=== PATIENT | female | born 1935 | race Caucasian/White ===

== ENCOUNTER → 2018-11-16 | Outpatient (CLI) | payer MEDICARE, OTHER ==
[~2018-11-16] MED LIST: ALPR.25 PO; AMOCLA500 PO; Aciphex20 MG PO; CALCIUM + D3 E1 EACH PO; CELE200 PO; Flonase 0.05% N16 GM IN; LEVSOD100 PO; Nitrofurantoin50 MG PO; OXYACE5T PO; Prinivil10 MG PO; RXONDA4ODT MM; SULTRIDS PO; TAMO10 PO; TEMA30 PO
== END | disposition home or self-care (01) ==
LOC: LAB EV 14:34 → LAB SHORT 14:34
DX: N39.0 Urinary tract infection, site not specified (principal)
CPT/HCPCS: 87077; 87086; 87186

== ENCOUNTER 2018-12-19 17:20 | Emergency (ER) | payer MEDICARE, OTHER ==
[~2018-12-19] VITALS: Ht 154.9 cm; Wt 70.8 kg
[2018-12-19] MEDS ORDERED: CEPH500 PO (18:30)
== END 2018-12-19 18:42 | disposition home or self-care (01) ==
LOC: ER 17:20
DX: L03.114 Cellulitis of left upper limb (principal); I10 Essential (primary) hypertension; Z85.3 Personal history of malignant neoplasm of breast; Z88.5 Allergy status to narcotic agent; Z79.899 Other long term (current) drug therapy
CPT/HCPCS: 99283

== ENCOUNTER → 2019-03-28 | Outpatient (CLI) | payer MEDICARE, OTHER ==
[~2019-03-28] MED LIST changes: +CEPH500 PO; +Metronidazole70 GM VAG; +Zithromax250 MG PO
[2019-04-01 15:08] LABS: HPV 16 Negative (Negative); HPV 18 Negative (Negative); HPV OTHER HR TYPES Negative (Negative)
== END | disposition home or self-care (01) ==
LOC: LAB 14:36 → LAB SHORT 14:36
PROVIDERS: Nurse Practitioner Women's Health
DX: Z12.72 Encounter for screening for malignant neoplasm of vagina (principal)
CPT/HCPCS: 87624; G0123

== ENCOUNTER 2019-05-06 23:09 | Emergency (ER) | payer MEDICARE, OTHER ==
[~2019-05-06] VITALS: Ht 167.6 cm; Wt 72.6 kg
[~2019-05-06 23:09] MED LIST changes: -Metronidazole70 GM VAG; -Zithromax250 MG PO
[2019-05-06 23:41] LABS: BASOPHILS ABSOLUTE AUTO 0.03 K/mm3 (0.00-0.23); BASOPHILS PERCENT AUTO 0 % (0-2); EOSINOPHILS ABSOLUTE AUTO 0.05 K/mm3 (0.00-0.68); EOSINOPHILS PERCENT AUTO 0 % (0-6); Hematocrit 37.4 % (33.0-51.0); Hemoglobin 12.6 g/dL (11.5-16.0); IMMATURE GRAN ABSOLUTE AUTO 0.04 K/mm3 (0.00-0.10); IMMATURE GRAN PERCENT AUTO 0 % (0-1); LYMPHOCYTES ABSOLUTE AUTO 0.96 K/mm3 (0.84-5.20); LYMPHOCYTES PERCENT AUTO 8 % (21-46); MONOCYTES ABSOLUTE AUTO 0.39 K/mm3 (0.16-1.47); MONOCYTES PERCENT AUTO 3 % (4-13); Mean Corpuscular HGB 30.8 pg (26.0-34.0); Mean Corpuscular HGB Conc 33.7 g/dL (31.5-36.5); Mean Corpuscular Volume 91 fL (80-100); Mean Platelet Volume 10.5 fL (9.1-12.4); NEUTROPHILS ABSOLUTE AUTO 10.36 K/mm3 (1.96-9.15); NEUTROPHILS PERCENT AUTO 88 % (41-73); Platelet Count 170 K/mm3 (150-400); RDW Coefficient Variation 13.2 % (11.7-14.2); RDW Standard Deviation 43.6 fL (35.1-46.3); Red Blood Cell Count 4.09 M/mm3 (3.80-5.20); White Blood Cell Count 11.83 K/mm3 (4.00-11.30)
[2019-05-07 00:48] LABS: Source, Urine Clean Catch
[2019-05-07 00:51] LABS: Bilirubin, Urine Neg (Neg); Blood, Urine 1+ (Neg); Glucose Qualitative, Urine Neg (Neg); Ketones, Urine Neg (Neg); Leukocyte Esterase, Urine 1+ (Neg); Nitrite, Urine Neg (Neg); Protein, Urine Neg (Neg); Urobilinogen, Urine NORM (Normal)
[2019-05-07 00:53] LABS: Appearance, Urine Clear (Clear); Color, Urine Yellow (P-Yellow)
[2019-05-07 00:59] LABS: Red Blood Cells, Urine 0-2 /hpf (0-2); Squamous Epithelial Cells Many /hpf (Few)
[2019-05-07 01:00] LABS: Bacteria Mod /hpf
[2019-05-07] MEDS ORDERED: Metronidazole70 GM VAG (01:34)
[2019-05-07] MEDS ORDERED: Zithromax250 MG PO (01:34)
[2019-05-07 01:40] LABS: Albumin, Blood 3.5 g/dL (3.4-5.0); Albumin/Globulin Ratio 1.1 (0.8-1.8); Bilirubin, Total 0.3 mg/dL (0.1-1.0); Bun/Creatinine Ratio 19.1 (12.0-20.0); Calcium, Blood 8.4 mg/dL (8.5-10.1); Creatinine, Blood 1.41 mg/dL (0.40-1.00); Globulin, Blood 3.2 g/dL (2.2-4.0); Potassium, Blood 3.4 mmol/L (3.5-5.5); Total Protein, Blood 6.7 g/dL (6.4-8.2)
== END 2019-05-07 02:13 | disposition home or self-care (01) ==
LOC: ER 23:09
PROVIDERS: Physician Assistant
DX: J18.1 Lobar pneumonia, unspecified organism (principal); N76.0 Acute vaginitis; I10 Essential (primary) hypertension; Z85.3 Personal history of malignant neoplasm of breast; Z88.5 Allergy status to narcotic agent; Z91.048 Other nonmedicinal substance allergy status; Z79.899 Other long term (current) drug therapy
CPT/HCPCS: 36415; 71046; 80053; 81001; 83690; 85025; 87086; 96361; 96365; 96375; 99284-25; A9270-GY; J0696; J2405; J7030

== ENCOUNTER 2019-10-21 00:14 | Day surgery (SDC) | payer MEDICARE, OTHER ==
[~2019-10-21 00:14] MED LIST changes: +Metronidazole70 GM VAG; +Zithromax250 MG PO
== END 2019-10-21 15:25 | disposition home or self-care (01) ==
LOC: ATC 00:14
DX: N30.00 Acute cystitis without hematuria (principal); B96.1 Klebsiella pneumoniae [K. pneumoniae] as the cause of diseases classified elsewhere
CPT/HCPCS: 96365; J1335

== ENCOUNTER 2019-10-22 00:12 | Day surgery (SDC) | payer MEDICARE, OTHER | END 2019-10-22 14:54 | disposition home or self-care (01) | LOC: ATC 00:12 | DX: N30.00 Acute cystitis without hematuria (principal); B96.1 Klebsiella pneumoniae [K. pneumoniae] as the cause of diseases classified elsewhere | CPT/HCPCS: 96365; J1335 ==

== ENCOUNTER 2019-10-24 14:57 | Day surgery (SDC) | payer MEDICARE, OTHER | END 2019-10-24 15:35 | disposition home or self-care (01) | LOC: ATC 14:57 | DX: N30.00 Acute cystitis without hematuria (principal); B96.1 Klebsiella pneumoniae [K. pneumoniae] as the cause of diseases classified elsewhere | CPT/HCPCS: 96365; J1335 ==

== ENCOUNTER → 2020-01-17 | Outpatient (CLI) | payer MEDICARE, OTHER | END | disposition home or self-care (01) | LOC: LAB EV 15:39 → LAB SHORT 15:39 | DX: N39.0 Urinary tract infection, site not specified (principal) | CPT/HCPCS: 87077; 87086; 87186 ==

== ENCOUNTER → 2020-01-28 | Outpatient (CLI) | payer MEDICARE, OTHER | END | disposition home or self-care (01) | LOC: LAB SHORT 09:41 → LAB 09:41 | DX: Z01.419 Encounter for gynecological examination (general) (routine) without abnormal findings (principal) | CPT/HCPCS: 87070; 87077; 87186; 87205 ==

== ENCOUNTER 2020-02-05 11:27 | Day surgery (SDC) | payer MEDICARE, OTHER | END 2020-02-05 16:15 | disposition home or self-care (01) | LOC: ATC 11:27 | DX: N30.00 Acute cystitis without hematuria (principal); B96.1 Klebsiella pneumoniae [K. pneumoniae] as the cause of diseases classified elsewhere | CPT/HCPCS: 96365; J1335 ==

== ENCOUNTER 2020-02-06 01:59 | Day surgery (SDC) | payer MEDICARE, OTHER | END 2020-02-06 15:30 | disposition home or self-care (01) | LOC: ATC 01:59 | DX: N30.00 Acute cystitis without hematuria (principal); B96.1 Klebsiella pneumoniae [K. pneumoniae] as the cause of diseases classified elsewhere | CPT/HCPCS: 96365; J1335 ==

== ENCOUNTER 2020-02-10 00:05 | Day surgery (SDC) | payer MEDICARE, OTHER | END 2020-02-10 15:35 | disposition home or self-care (01) | LOC: ATC 00:05 | DX: N30.00 Acute cystitis without hematuria (principal); B96.1 Klebsiella pneumoniae [K. pneumoniae] as the cause of diseases classified elsewhere | CPT/HCPCS: 96365; J1335 ==

== ENCOUNTER 2020-04-05 07:10 | Day surgery (SDC) | payer MEDICARE, OTHER | END 2020-04-05 10:44 | disposition home or self-care (01) | LOC: ATC 07:10 | DX: N39.0 Urinary tract infection, site not specified (principal); N81.6 Rectocele; R39.14 Feeling of incomplete bladder emptying; N95.2 Postmenopausal atrophic vaginitis; Z88.5 Allergy status to narcotic agent; Z88.2 Allergy status to sulfonamides; Z88.1 Allergy status to other antibiotic agents; Z88.8 Allergy status to other drugs, medicaments and biological substances; Z87.440 Personal history of urinary (tract) infections | CPT/HCPCS: J1335 ==

== ENCOUNTER 2020-04-07 00:35 | Day surgery (SDC) | payer MEDICARE, OTHER ==
[~2020-04-07 00:35] MED LIST changes: -CALCIUM + D3 E1 EACH PO; +CALCIUM 600 +1 EAC7 PO; +FLUT.05NI; -Flonase 0.05% N16 GM IN
[2020-04-08] MEDS ORDERED: Lisinopril-Hct1 EAC4 PO (09:40)
== END 2020-04-07 09:19 | disposition home or self-care (01) ==
LOC: ATC 00:35
DX: N39.0 Urinary tract infection, site not specified (principal); Z88.5 Allergy status to narcotic agent; Z88.2 Allergy status to sulfonamides; Z88.1 Allergy status to other antibiotic agents; Z88.8 Allergy status to other drugs, medicaments and biological substances; N81.6 Rectocele; N95.2 Postmenopausal atrophic vaginitis; Z87.440 Personal history of urinary (tract) infections
CPT/HCPCS: J1335

== ENCOUNTER 2020-04-08 00:07 | Day surgery (SDC) | payer MEDICARE, OTHER ==
[2020-04-08] MEDS ORDERED: Lisinopril-Hct1 EAC4 PO (09:40)
== END 2020-04-08 10:03 | disposition home or self-care (01) ==
LOC: ATC 00:07
DX: N39.0 Urinary tract infection, site not specified (principal); B96.1 Klebsiella pneumoniae [K. pneumoniae] as the cause of diseases classified elsewhere; N81.6 Rectocele; C50.911 Malignant neoplasm of unspecified site of right female breast; C50.912 Malignant neoplasm of unspecified site of left female breast; Z88.5 Allergy status to narcotic agent; Z88.2 Allergy status to sulfonamides; Z88.8 Allergy status to other drugs, medicaments and biological substances; Z79.899 Other long term (current) drug therapy; N95.2 Postmenopausal atrophic vaginitis; Z87.440 Personal history of urinary (tract) infections
CPT/HCPCS: 96365; J1335

== ENCOUNTER 2020-04-11 00:14 | Day surgery (SDC) | payer MEDICARE, OTHER ==
[~2020-04-11 00:14] MED LIST changes: +Lisinopril-Hct1 EAC4 PO
== END 2020-04-11 10:08 | disposition home or self-care (01) ==
LOC: ATC 00:14
DX: N39.0 Urinary tract infection, site not specified (principal); Z88.5 Allergy status to narcotic agent; Z88.1 Allergy status to other antibiotic agents; Z88.8 Allergy status to other drugs, medicaments and biological substances; Z79.82 Long term (current) use of aspirin; Z79.899 Other long term (current) drug therapy
CPT/HCPCS: 96365; J1335

== ENCOUNTER 2020-04-12 09:35 | Day surgery (SDC) | payer MEDICARE, OTHER | END 2020-04-12 10:08 | disposition home or self-care (01) | LOC: ATC 09:35 | DX: N39.0 Urinary tract infection, site not specified (principal); N81.6 Rectocele; N95.2 Postmenopausal atrophic vaginitis; Z87.440 Personal history of urinary (tract) infections; Z88.5 Allergy status to narcotic agent; Z88.2 Allergy status to sulfonamides; Z88.1 Allergy status to other antibiotic agents; Z88.8 Allergy status to other drugs, medicaments and biological substances | CPT/HCPCS: 96365; J1335 ==

== ENCOUNTER → 2021-02-12 | Outpatient (CLI) | payer MEDICARE, OTHER | END | disposition home or self-care (01) | LOC: LAB SHORT 13:41 → LAB 13:41 | DX: R82.79 Other abnormal findings on microbiological examination of urine (principal) | CPT/HCPCS: 87077; 87086; 87186 ==

== ENCOUNTER 2023-06-09 11:30 | Emergency (ER) | payer MEDICARE, OTHER ==
[~2023-06-09] VITALS: Ht 165.1 cm; Wt 77.1 kg
[2023-06-09] MEDS ORDERED: XARELTO15 M1 PO (11:54)
[2023-06-09] MEDS ORDERED: ESCI10 PO (11:54)
[2023-06-09 12:46] LABS: Source, Urine Suprapubic Cath
[2023-06-09 13:02] LABS: Bilirubin, Urine Neg (Neg); Blood, Urine 5+ (Neg); Color, Urine Yellow (P-Yellow); Glucose Qualitative, Urine Neg (Neg); Ketones, Urine Neg (Neg); Leukocyte Esterase, Urine 3+ (Neg); Nitrite, Urine Neg (Neg); Protein, Urine 2+ (Neg); Urobilinogen, Urine NORM (Normal); pH, Urine 6.5 (5.0-8.0)
[2023-06-09 13:37] LABS: Appearance, Urine Hazy (Clear); Bacteria Many /hpf; Mucus Light (0-Heavy); Squamous Epithelial Cells Rare /hpf (Few)
[2023-06-09 13:38] LABS: Transitional Epithelial Cells Rare /hpf (0-Rare)
[2023-06-09] MEDS ORDERED: LEVFLO500 PO (13:47)
[2023-06-09 14:07] VITALS: BP 154/76
== END 2023-06-09 14:07 | disposition home or self-care (01) ==
LOC: ER 11:30
PROVIDERS: Physician Assistant
DX: N39.0 Urinary tract infection, site not specified (principal); Z88.5 Allergy status to narcotic agent; Z88.1 Allergy status to other antibiotic agents; Z91.048 Other nonmedicinal substance allergy status; Z79.899 Other long term (current) drug therapy; Z85.3 Personal history of malignant neoplasm of breast; I10 Essential (primary) hypertension
CPT/HCPCS: 51102; 81001; 87077; 87086; 87186; 99283-25; A9270

== ENCOUNTER 2023-07-10 10:45 | Day surgery (SDC) | payer MEDICARE, OTHER ==
[~2023-07-10 10:45] MED LIST changes: +Cytomel5 MCG PO; +ESCI10 PO; +Estrace Vagin42.5 GM PV; +LEVFLO500 PO; +NEBI5 PO; +NITR100CA PO; +Ventolin5 MG/1 ML INH; +XARELTO15 M1 PO; +XARELTO20 MG PO
--- NOTE | 2023-07-10 11:52 | NUR ---
REBECA HANNAH AND CARMELITA SPOKE WITH PT AND HER REGARDING CANCELLING PACEMAKER IMPLANT RELATIVE TO URINE AND POSSIBLE BLOOD INFECTION. PT WILL PROVIDE URINE AND BLOOD FOR CULTURES AND OFFICE WILL CONTACT PT WITH RESULTS.
== END 2023-07-10 12:41 | disposition home or self-care (01) ==
LOC: MHTC 10:45
DX: I48.91 Unspecified atrial fibrillation (principal); R55 Syncope and collapse; I49.5 Sick sinus syndrome
CPT/HCPCS: 87040; J0690; J1644; J7040

== ENCOUNTER 2023-10-02 09:54 | Inpatient (IN) | payer MEDICARE, OTHER ==
[~2023-10-02] VITALS: Ht 167.6 cm; Wt 67.3 kg
[~2023-10-02 09:54] MED LIST changes: -LEVSOD100 PO; +LEVSOD75 PO
[2023-10-02] MEDS ORDERED: HYDR25SUP PR (10:24)
[2023-10-02] MEDS ORDERED: METPRE4DP PO (10:26)
[2023-10-02] MEDS ORDERED: TRIDERM28.4 GM TOP (10:26)
[2023-10-02] MEDS ORDERED: Acetaminophen 500 MG Tab PO ONE (10:30)
[2023-10-02 10:35] LABS: BASOPHILS ABSOLUTE AUTO 0.02 K/mm3 (0.00-0.23); BASOPHILS PERCENT AUTO 0 % (0-2); EOSINOPHILS ABSOLUTE AUTO 0.03 K/mm3 (0.00-0.68); EOSINOPHILS PERCENT AUTO 1 % (0-6); Hematocrit 20.8 % (33.0-51.0); Hemoglobin 6.9 g/dL (11.5-16.0); IMMATURE GRAN ABSOLUTE AUTO 0.01 K/mm3 (0.00-0.10); IMMATURE GRAN PERCENT AUTO 0 % (0-1); LYMPHOCYTES ABSOLUTE AUTO 1.31 K/mm3 (0.84-5.20); LYMPHOCYTES PERCENT AUTO 28 % (21-46); MONOCYTES PERCENT AUTO 9 % (4-13); Mean Corpuscular HGB 29.9 pg (26.0-34.0); Mean Corpuscular HGB Conc 33.2 g/dL (31.5-36.5); Mean Corpuscular Volume 90 fL (80-100); Mean Platelet Volume 10.1 fL (9.1-12.4); NEUTROPHILS ABSOLUTE AUTO 2.95 K/mm3 (1.96-9.15); NEUTROPHILS PERCENT AUTO 63 % (41-73); NRBC ABSOLUTE 0.02 K/mm3 (0.00-0.02); NRBC Auto 0.4 /100 WBC (0.0-0.2); Platelet Count 192 K/mm3 (150-400); RDW Coefficient Variation 14.2 % (11.7-14.2); RDW Standard Deviation 46.2 fL (35.1-46.3); Red Blood Cell Count 2.31 M/mm3 (3.80-5.20); White Blood Cell Count 4.72 K/mm3 (4.00-11.30)
[2023-10-02] MEDS ORDERED: KLOR-CON 1010 ME9 PO (10:59)
[2023-10-02] MEDS ORDERED: ALBU90OI INH (11:01)
[2023-10-02 11:07] LABS: Albumin, Blood 3.3 g/dL (3.4-5.0); Albumin/Globulin Ratio 1.2 (0.8-1.8); Bilirubin, Total 0.7 mg/dL (0.1-1.0); Calcium, Blood 8.5 mg/dL (8.5-10.1); Creatinine, Blood 1.22 mg/dL (0.40-1.00); Globulin, Blood 2.8 g/dL (2.2-4.0); Potassium, Blood 3.7 mmol/L (3.5-5.5); Thyroid Stimulating Hormone 0.268 uIU/mL (0.360-4.800); Total Protein, Blood 6.1 g/dL (6.4-8.2)
[2023-10-02 11:34] LABS: Base Excess Venous 2.2 mmol/L; Bicarbonate Venous 26.3 mmol/L (24.0-30.0); PCO2 Venous 31.3 mmHg (38-42); pH Blood Venous 7.51 (7.34-7.37)
[2023-10-02 11:46] LABS: Influenza A, PCR NEGATIVE (NEGATIVE); Influenza B, PCR NEGATIVE (NEGATIVE); Resp Syncytial Virus, PCR NEGATIVE (NEGATIVE); SARS-Cov-2 (COVID-19) PCR, MMC NEGATIVE (NEGATIVE)
[2023-10-02 12:00] LABS: Source, Urine Suprapubic Cath
[2023-10-02 12:06] LABS: Appearance, Urine Clear (Clear); Bilirubin, Urine Neg (Neg); Blood, Urine 4+ (Neg); Color, Urine Yellow (P-Yellow); Glucose Qualitative, Urine Neg (Neg); Ketones, Urine Neg (Neg); Leukocyte Esterase, Urine 2+ (Neg); Nitrite, Urine Neg (Neg); Protein, Urine 1+ (Neg); Urobilinogen, Urine NORM (Normal)
[2023-10-02 12:18] LABS: Bacteria Rare /hpf; Squamous Epithelial Cells Rare /hpf (Few)
[2023-10-02] MEDS ORDERED: Pantoprazole Sodium 40 MG Injection IV ONE (12:25)
[2023-10-02] MEDS ORDERED: FLU VACC QS2023-24(6MOS UP)/PF 60 MCG/0.5 ML SYRINGE IM ONE (13:25)
[2023-10-02] MEDS ORDERED: Peg/Electrolytes 4,000 ML BTL PO ONE ×2 (13:45→17:55)
[2023-10-02] MEDS ORDERED: NS 1,000 ML IV SCH ×3 (14:00→21:35)
[2023-10-02] MEDS ORDERED: FentaNYL Citrate 50 MCG/ML 2 ML Injection IV PRN (14:40)
[2023-10-02 17:43] VITALS: BP 168/48
[2023-10-02 18:06] LABS: Hematocrit 24.2 % (33.0-51.0); Hemoglobin 8.2 g/dL (11.5-16.0)
--- NOTE | 2023-10-02 18:11 | NUR ---
PT ARRIVED TO ROOM AOX4 AND COOPERATIVE OF CARE. PT IS A ONE PERSON ASSIST WITH WALKER. PT IS HAVING BLEEDING WITH HER STOOL WATER WAS PINK COLORED. BED ALARM IN PLACE AND CALL LIGHT WITHIN REACH WILL CONTINUE TO MONITOR.
[2023-10-02] MEDS ORDERED: Acetaminophen 500 MG Tab PO PRN (20:40)
[2023-10-02] MEDS ORDERED: Pantoprazole Sodium 40 MG Injection IV SCH (21:00)
[2023-10-03 02:52] VITALS: BP 139/58
--- NOTE | 2023-10-03 05:54 | NUR ---
END OF SHIFT SUMMARY PT A&O X 4, FORGETFUL. TOLERATING BOWEL PREP WELL, STOOL CURRENTLY STILL WATERY, LIGHT BROWN. PT ENCOURAGED TO FINISH PREP. UP TO BSC WITH CGA, PT STEADY BUT WEAK. TYLENOL GIVEN FOR HEADACHE. IVF INFUSING. RUE EDEMA IS CHRONIC PER PT.
[2023-10-03 06:12] LABS: BASOPHILS ABSOLUTE AUTO 0.03 K/mm3 (0.00-0.23); BASOPHILS PERCENT AUTO 1 % (0-2); EOSINOPHILS ABSOLUTE AUTO 0.06 K/mm3 (0.00-0.68); EOSINOPHILS PERCENT AUTO 2 % (0-6); Hemoglobin 7.5 g/dL (11.5-16.0); IMMATURE GRAN ABSOLUTE AUTO 0.01 K/mm3 (0.00-0.10); IMMATURE GRAN PERCENT AUTO 0 % (0-1); LYMPHOCYTES ABSOLUTE AUTO 1.16 K/mm3 (0.84-5.20); LYMPHOCYTES PERCENT AUTO 31 % (21-46); MONOCYTES ABSOLUTE AUTO 0.45 K/mm3 (0.16-1.47); MONOCYTES PERCENT AUTO 12 % (4-13); Mean Corpuscular HGB 30.4 pg (26.0-34.0); Mean Corpuscular HGB Conc 34.1 g/dL (31.5-36.5); Mean Corpuscular Volume 89 fL (80-100); Mean Platelet Volume 9.6 fL (9.1-12.4); NEUTROPHILS PERCENT AUTO 54 % (41-73); Platelet Count 142 K/mm3 (150-400); RDW Coefficient Variation 13.8 % (11.7-14.2); RDW Standard Deviation 44.4 fL (35.1-46.3); Red Blood Cell Count 2.47 M/mm3 (3.80-5.20); White Blood Cell Count 3.71 K/mm3 (4.00-11.30)
[2023-10-03 06:36] LABS: Albumin, Blood 2.9 g/dL (3.4-5.0); Albumin/Globulin Ratio 1.2 (0.8-1.8); Bun/Creatinine Ratio 15.2 (12.0-20.0); Calcium, Blood 8.1 mg/dL (8.5-10.1); Creatinine, Blood 1.32 mg/dL (0.40-1.00); Globulin, Blood 2.4 g/dL (2.2-4.0); Potassium, Blood 3.5 mmol/L (3.5-5.5); Total Protein, Blood 5.3 g/dL (6.4-8.2)
[2023-10-03 07:25] VITALS: BP 134/64
[2023-10-03] MEDS ORDERED: NS 1,000 ML IV SCH ×2 (07:50→08:00)
[2023-10-03] MEDS ORDERED: Lactated Ringer's 1,000 ML IV SCH (11:55)
[2023-10-03 12:07] VITALS: BP 175/65
[2023-10-03] MEDS ORDERED: Midazolam HCl 1MG / ML 2ML Vial ONE (12:34)
[2023-10-03] MEDS ORDERED: FentaNYL Citrate 50 MCG/ML 2 ML Injection ONE (12:34)
[2023-10-03] MEDS ORDERED: propofoL 20 ML IV ONE (12:34)
--- NOTE | 2023-10-03 12:38 | NUR ---
Patient transfered via gurney from medical floor to [facility]. History, Chart, Medications and Allergies reviewed before start of procedure. Lungs clear T/O to Auscultation. Notified sedation nurse of tele and suprapubic catheter. Ring taped to chart in specimen cup with patient sticker.
--- NOTE | 2023-10-03 12:48 | NUR ---
10/03/23 [address] POLLACK, SEE ANESTHESIA RECORDS.
--- NOTE | 2023-10-03 16:22 | NUR ---
PT IS AOX4 AND COOPERATIVE OF CARE. PT HAD COMPLETED HER BOWEL CLEANSE AND WAS ABLE TO HAVE DR COOPER COMPLETE AN EGD AND COLONOSCOPY. PT LEFT ROOM AT 1130 AND WAS BACK BY 1330. PT WAS REQUESTING A DIET IMMEDIATELY. PT HAS BEEN A 1 PERSON STANDBY ASSIST TO TRANSFER AND DOES WELL WITH A WALKER. PT HAS HAD HERE ALL DAY. PT IS AOX4 AND COOPERATIVE OF ALL CARE. CALL LIGHT IS WITHIN REACH WILL CONTINUE TO MONITOR.
[2023-10-03 17:17] LABS: Percent Saturation 3.5 % (15.0-50.0)
[2023-10-03 18:10] VITALS: BP 131/64
[2023-10-03 19:20] VITALS: BP 118/50
[2023-10-03] MEDS ORDERED: ALPRAZolam 0.25 MG Tab PO PRN (20:00)
[2023-10-04 03:16] VITALS: BP 131/79
--- NOTE | 2023-10-04 05:19 | NUR ---
SHIFT SUMMARY NOC PT A/O X 4. FORGETFUL AT TIMES. PLEASANT AND COOPERATIVE WITH CARE. PT HAD UPPER/LOWER EGD PERFORMED YESTERDAY WITH BIOPSY TAKEN WHICH IS PENDING. PT HGB 7.5 YESTERDAY MORNING, AWAITING AM LABS. VSS. ON TELE AFIB IN 60'S. CHRONIC SUPRAPUBIC CATHETER IN PLACE DRAINING TO GRAVITY.
[2023-10-04 06:30] LABS: BASOPHILS ABSOLUTE AUTO 0.02 K/mm3 (0.00-0.23); BASOPHILS PERCENT AUTO 1 % (0-2); EOSINOPHILS ABSOLUTE AUTO 0.08 K/mm3 (0.00-0.68); EOSINOPHILS PERCENT AUTO 2 % (0-6); Hematocrit 21.9 % (33.0-51.0); Hemoglobin 7.4 g/dL (11.5-16.0); IMMATURE GRAN ABSOLUTE AUTO 0.01 K/mm3 (0.00-0.10); IMMATURE GRAN PERCENT AUTO 0 % (0-1); LYMPHOCYTES ABSOLUTE AUTO 1.13 K/mm3 (0.84-5.20); LYMPHOCYTES PERCENT AUTO 30 % (21-46); MONOCYTES ABSOLUTE AUTO 0.34 K/mm3 (0.16-1.47); MONOCYTES PERCENT AUTO 9 % (4-13); Mean Corpuscular HGB 30.5 pg (26.0-34.0); Mean Corpuscular HGB Conc 33.8 g/dL (31.5-36.5); Mean Corpuscular Volume 90 fL (80-100); Mean Platelet Volume 9.1 fL (9.1-12.4); NEUTROPHILS ABSOLUTE AUTO 2.17 K/mm3 (1.96-9.15); NEUTROPHILS PERCENT AUTO 58 % (41-73); Platelet Count 150 K/mm3 (150-400); RDW Coefficient Variation 14.1 % (11.7-14.2); Red Blood Cell Count 2.43 M/mm3 (3.80-5.20); White Blood Cell Count 3.75 K/mm3 (4.00-11.30)
[2023-10-04 06:55] LABS: Albumin, Blood 2.8 g/dL (3.4-5.0); Albumin/Globulin Ratio 1.2 (0.8-1.8); Bilirubin, Total 0.5 mg/dL (0.1-1.0); Creatinine, Blood 1.38 mg/dL (0.40-1.00); Globulin, Blood 2.3 g/dL (2.2-4.0); Potassium, Blood 3.5 mmol/L (3.5-5.5); Total Protein, Blood 5.1 g/dL (6.4-8.2)
[2023-10-04 07:24] VITALS: BP 155/70
[2023-10-04] MEDS ORDERED: Psyllium 1 EA Pack PO SCH (09:00)
[2023-10-04] MEDS ORDERED: Iron Dextran 25 MG in NS 50 ML IV ONE (09:25)
[2023-10-04 10:16] VITALS: BP 138/64
[2023-10-04] MEDS ORDERED: Iron Dextran 975 MG in NS 250 ML IV ONE (11:00)
[2023-10-04] MEDS ORDERED: PANT40 PO (12:27)
[2023-10-04] MEDS ORDERED: METAMUCIL POWD798 GM PO (13:01)
[2023-10-04] MEDS ORDERED: Acerola C500 MG PO (13:02)
[2023-10-04] MEDS ORDERED: DOCU100 PO (13:03)
[2023-10-04] MEDS ORDERED: FERSU300 PO (13:03)
== END 2023-10-04 13:39 | disposition home or self-care (01) | DRG 394 ==
LOC: ER 09:54 → MEDS 09:55 → ENPENDDIS 10-04 11:41 → MEDS 10-04 13:39
PROVIDERS: Emergency Medicine; Family Medicine; Surgery; ADMIT Internal Medicine
PROC: 0DJD8ZZ Inspection of Lower Intestinal Tract, Via Natural or Artificial Opening Endoscopic (ICD-10-PCS; 2023-10-03)
PROC: 30233N1 Transfusion of Nonautologous Red Blood Cells into Peripheral Vein, Percutaneous Approach (ICD-10-PCS; principal; 2023-10-03 11:15)
PROC: 0DB98ZX Excision of Duodenum, Via Natural or Artificial Opening Endoscopic, Diagnostic (ICD-10-PCS; 2023-10-03 11:15)
DX: K64.8 Other hemorrhoids (principal); D62 Acute posthemorrhagic anemia; D68.32 Hemorrhagic disorder due to extrinsic circulating anticoagulants; N17.9 Acute kidney failure, unspecified; I48.20 Chronic atrial fibrillation, unspecified; E87.3 Alkalosis; E87.1 Hypo-osmolality and hyponatremia; K92.1 Melena; K63.5 Polyp of colon; T45.515A Adverse effect of anticoagulants, initial encounter; Z11.52 Encounter for screening for COVID-19; Z28.21 Immunization not carried out because of patient refusal; E03.9 Hypothyroidism, unspecified; F32.9 Major depressive disorder, single episode, unspecified; F41.1 Generalized anxiety disorder; R32 Unspecified urinary incontinence; F17.210 Nicotine dependence, cigarettes, uncomplicated; I12.9 Hypertensive chronic kidney disease with stage 1 through stage 4 chronic kidney disease, or unspecified chronic kidney disease; K57.30 Diverticulosis of large intestine without perforation or abscess without bleeding; N18.9 Chronic kidney disease, unspecified; Z87.440 Personal history of urinary (tract) infections; Z85.3 Personal history of malignant neoplasm of breast; Z90.13 Acquired absence of bilateral breasts and nipples; Z98.890 Other specified postprocedural states; Z88.5 Allergy status to narcotic agent; Z88.8 Allergy status to other drugs, medicaments and biological substances; Z79.01 Long term (current) use of anticoagulants; Z79.890 Hormone replacement therapy; Z79.899 Other long term (current) drug therapy
CPT/HCPCS: 0241U; 36415; 36430; 70450; 71045; 74177; 80053; 81001; 82272; 82728; 82803; 83540; 83550; 83880; 84443; 84484; 85014; 85018; 85025; 86850; 86900; 86901; 86923; 87077; 87086; 87186; 93005; 93010; 96374-59; 96375; 99285-25; A9270; C9113; J1750; J2250; J2704; J3010; J7030; J7050; J7120; P9016; Q9967